=== PATIENT | male | born 1950 | race Caucasian/White ===

== ENCOUNTER 2024-12-28 13:22 | Inpatient (IN) | payer OTHER, MEDICARE ==
[~2024-12-28] VITALS: Ht 172.7 cm; Wt 67.0 kg
[~2024-12-28 13:22] MED LIST: ASPI81TA52 PO; ATOR-429 PO; CYCL-920 PO; FLUT16SP11 BOTHNARES; LOSA-416 PO; OMEP40CA21 PO; TAMS0.4C32 PO; TRAM50TA2 PO
[2024-12-28] MEDS: HEPARIN DRIP-CARDIAC**PHARMACIST-TO-DOSE IV ONE (13:30)
--- NOTE | 2024-12-28 13:32 | ELECTROCARDIOGRAPH REPORT ---
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
--- NOTE | 2024-12-28 13:33 | Physician Documentation ---
Addendum CHIEF COMPLAINT/HPI: The patient is a 74-year-old male with a history of dementia and previous CVA with chronic right-sided deficit who was reportedly brought in to [facility] for nausea and vomiting. Troponins were elevated and rising and the patient was transferred here for Cardiology care. REVIEW OF SYSTEMS: Unable to obtain due to dementia. PHYSICAL EXAMINATION: Vitals and nursing note reviewed. Constitutional: General: Patient is awake, alert, oriented x 4 in no acute distress and well appearing. Speech is clear and lucid. Appearance: Normal appearance. Patient is not ill-appearing, toxic-appearing or diaphoretic. HENT: Head: Normocephalic and atraumatic. Mouth: Mucous membranes are moist. Pharynx: Oropharynx is clear. Eyes: General: No scleral icterus. Extraocular Movements: Extraocular movements intact. Pupils: Pupils are equal, round, and reactive to light. Neck: Supple, no Kernig or Brudzinski sign. Cardiovascular: Rate and Rhythm: Normal rate and regular rhythm. Heart sounds: No murmur heard. Pulmonary: Effort: No respiratory distress. Breath sounds: No wheezing, rhonchi or rales. Abdominal: General: There is no distension. Palpations: There is no fluid wave, hepatomegaly or mass. Tenderness: There is no abdominal tenderness. There is no guarding. Musculoskeletal: General: No swelling or deformity. Skin: Coloration: Skin is not jaundiced. Findings: No erythema or rash. Neurological: Mental Status: Patient is alert. Chronic right-sided weakness. MEDICAL DECISION MAKING: This 74-year-old male was brought here with rising troponins consistent with an NSTEMI. He does have dementia and required some sedation in order to place leads on him for monitoring and drawing blood. He will require admission. Departure Disposition: ADMITTED INPATIENT Admitted to Inpatient Unit: to hospitalist Admission Level of Care: PCU with Tele Impression: Primary Impression: NSTEMI (non-ST elevated myocardial infarction) Condition: Stable DEVENDRA PACE MD Dec 28, 2024 13:33
--- NOTE | 2024-12-28 14:00 | RADIOLOGY REPORT ---
CHEST RADIOGRAPH Indication: CP Technique: Single frontal view of the chest was obtained Comparison: None FINDINGS: Lines and Tubes: None Lungs: No focal consolidation. Pleura: No effusion. No pneumothorax. Cardiomediastinal contours: Unremarkable Bones: No acute osseous abnormality. IMPRESSION: No acute cardiopulmonary disease.
[2024-12-28] MEDS: heparin 25,000 UNIT/250ml bag 250 ML IV PRN (14:29)
[2024-12-28] MEDS: haloperidol lactate 5mg/ml inj IVH STA (14:31)
[2024-12-28] MEDS: MESSAGE TO NURSING IV ONE (14:43)
[2024-12-28] MEDS: HEPARIN DRIP INITAL BOLUS --- DO NOT GIVE/ORDER MC ONE (14:43)
[2024-12-28 16:03] LABS: MEAN PLATELET VOLUME 8.9 FL (7.4-10.4); RED CELL DISTRIBUTION WIDTH 14.0 % (11.5-14.5)
[2024-12-28 16:26] LABS: CREATININE 1.02 MG/DL (0.60-1.10); PRO BRAIN NATRIURETIC PEPTIDE 2458 PG/ML (0-450); TOTAL CARBON DIOXIDE 22.0 MMOL/L (24-32); eCRCL 59 ML/MIN; eGFR 71 ML/MIN
[2024-12-28] MEDS ORDERED: potassium Cl 20 mEq SR tablet PO PRN (17:20)
[2024-12-28] MEDS ORDERED: magnesium sulf-water 2g/50mL 50 ML IV PRN (17:20)
[2024-12-28] MEDS ORDERED: magnesium sulf-water 4G/100mL 100 ML IV PRN (17:20)
[2024-12-28] MEDS ORDERED: magnesium Cl slow-release 64mg tablet PO PRN (17:20)
[2024-12-28] MEDS ORDERED: ondansetron/PF 4mg/2ml inj IV PRN (17:20)
[2024-12-28] MEDS ORDERED: heparin 10,000 units/1 ML INJ IV PRN (17:25)
[2024-12-28] MEDS ORDERED: heparin 25,000 UNIT/250ml bag 250 ML IV PRN (17:25)
[2024-12-28] MEDS: amiodarone 150mg/dext, iso-os 100 ML IV ONE (18:13)
[2024-12-28] MEDS: normal saline 1000ml 1,000 ML IV SCH (18:52)
--- NOTE | 2024-12-28 20:20 | HISTORY AND PHYSICAL ---
History & Physical Providers to CC ~ History of Present Illness Reason for Admit\Complaint: intense vomiting, hard time breathing History of Present Illness Patient is 74-year-old male with past medical history mentioned below. Patient has severe dementia unable to give any history to me. Patient's son Radames present at bedside who is the POA for the patient and provided most of the history. According to patient's son patient lives in dementia care facility in around 4:00 a.m. today they called him that patient is having intense vomiting and difficulty in breathing. Patient was brought in to [facility] for nausea and vomiting and from there they transferred the patient to [facility] due to elevated troponin and the patient was transferred here for Cardiology care. Patient was started in on heparin drip in ER. When I evaluated the patient patient was mildly hypotensive with elevated heart rate. Patient also got dose of Benadryl and Haldol in ER. Unable to get any further history due to severe dementia Allergies: Coded Allergies: No Known Allergies (Unverified , 12/29/17) Home Medications Home Medications Active Tamsulosin Hcl 0.4 Mg Cap.sr.24h 0.4 Mg PO DAILY Reported Tramadol HCl 50 Mg Tablet 1 Tablet PO DAILY PRN Prilosec (Omeprazole) 40 Mg Capsule 1 Cap PO DAILY 30 Days Cozaar* (Losartan Potassium) 50 Mg Tablet 1 Tab PO DAILY 30 Days Fluticasone Propionate 16 Gm [place].susp 2 Sprays BOTHNARES DAILY Cyclobenzaprine HCl 5 Mg Tablet 1 Tab PO HSPRN 30 Days Lipitor* (Atorvastatin Calcium) 80 Mg Tablet 1 Tablet PO HS Aspirin EC (Aspirin) 81 Mg Tablet.dr 1 Tab PO DAILY 30 Days Past Medical History Past Medical History Prostate cancer status post radiation therapy, PTSD, h/o alcohol abuse, and drug abuse. 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 ROS ROS Review of the system was limited because of the patient's level of confusion. Exam Vitals: Vital Signs Date Time Temp Pulse Resp B/P (MAP) Pulse Ox O2 Delivery O2 Flow Rate FiO2 12/28/24 18:56 98 16 112/79 (90) 96 0 12/28/24 18:01 98.0 General: General-patient not in any acute distress, awake chronically ill-appearing HEENT-atraumatic normocephalic, neck supple without elevated JVD, No lymphadenopathy bilaterally. Eyes-no icterus or pallor seen in eyes Chest-clear to auscultation bilaterally, breathing nonlabored no tachypnea, no wheezing, no crepitation, no crackles. Heart-S1-S2 normal, regular heart rate no murmur Abdomen bowel sounds positive on auscultation, soft nondistended nontender no guarding, no rigidity Skin no active skin rash Neurology-signs of right upper and lower extremity weakness present residue deficit due to old CVA Extremity- no pedal edema Psychiatry - patient is confused, not agitated , partially cooperated during physical examination Diagnostic Data Last Recorded Lab Results: 12/28/24 1545 12/28/24 1545 Diagnostic Data: Laboratory Tests Test 12/28/24 15:45 APTT (Heparin Protocol) 47 SECONDS (45-60) Coagulation Comments Additional Plan Patient is 74-year-old male with past medical history of Prostate cancer status post radiation therapy, PTSD, h/o alcohol abuse, and drug abuse. History of stroke in 2023 . # Patient is admitted for acute kidney injury due to nausea and vomiting, mildly hypotensive with elevated heart rate-patient is started on normal saline 70 mL/hour, we will continue to monitor patient's renal function # elevated troponin - Patient was started in on heparin drip , continue to monitor patient's cardiac markers and contact cardiology team in a.m. ordered echocardiogram. # History of stroke in 2023 - fall and aspiration precautions needed bedside swallowing studies ordered. We will continue to monitor patient's labs and vitals closely . Needs physical therapy evaluation before discharge . Code status discussed with the patients son , patient code status is DNR DNI. Time spent in discussing code status 16 minutes. We will do home medication reconciliation once updated in electronic by nursing staff or pharmacist. Further management depending on response to treatment and as per recommendation by operations systems specialist . I will continue to follow patient in a.m. Date of Service: Dec 28, 2024 Billing Provider: ALISON SIMMS MD Common Visit Codes: 12850-JEPTEYG INP/OBS CARE (HIGH) Secondary Visit Codes: 48907-RRPSIPTV CARE PLAN 30 MINUTES ALISON SIMMS MD Dec 28, 2024 20:20
[2024-12-28] MEDS: metoprolol succinate 25mg (24-HOUR) SR. Tablet PO ONE (23:29)
[2024-12-28] MEDS: metoprolol tartrate 1mg/ml inj IV ONE (23:40)
[2024-12-28] MEDS: haloperidol lactate 5mg/ml inj IM ONE (23:40)
[2024-12-29] VITALS (8 sets, daily range): BP systolic 112–170; BP diastolic 72–89; PULSE 47–94; RESP 12–20; TEMP 97.6–98.7; O2SAT 96–99
[2024-12-29 04:36] LABS: MEAN PLATELET VOLUME 8.4 FL (7.4-10.4); RED CELL DISTRIBUTION WIDTH 14.1 % (11.5-14.5)
[2024-12-29 04:42] LABS: CREATININE 1.17 MG/DL (0.60-1.10); TOTAL CARBON DIOXIDE 26.0 MMOL/L (24-32); eCRCL 52 ML/MIN; eGFR 61 ML/MIN
[2024-12-29] MEDS: MESSAGE TO NURSING IV ONE ×3 (05:15→21:45)
[2024-12-29] MEDS: potassium Cl 20 mEq SR tablet PO PRN (05:41)
--- NOTE | 2024-12-29 06:13 | ELECTROCARDIOGRAPH REPORT ---
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
[2024-12-29] MEDS: potassium Cl 40MEQ/1/2NS 520ml 520 ML IV PRN (09:04)
[2024-12-29] MEDS ORDERED: MELA3TAB70 PO (17:35)
[2024-12-29] MEDS ORDERED: LISI20TA28 PO (17:35)
[2024-12-29] MEDS ORDERED: POLY119P2 PO (17:35)
[2024-12-29] MEDS ORDERED: ONDA-243 PO (17:35)
[2024-12-29] MEDS ORDERED: DIVA-74 PO (17:35)
[2024-12-29] MEDS ORDERED: TRAZ-251 PO (17:35)
[2024-12-29] MEDS ORDERED: SENN-360 PO (17:35)
[2024-12-29] MEDS ORDERED: QUET25TA PO (17:35)
[2024-12-29] MEDS ORDERED: AMLO5TAB5 PO (17:35)
[2024-12-29] MEDS ORDERED: FOLI0.4T6 PO (17:35)
[2024-12-29] MEDS ORDERED: ACET-1008 PO (17:35)
[2024-12-29] MEDS ORDERED: MULT-1085 PO (17:35)
--- NOTE | 2024-12-29 18:17 | CONSULTATION REPORT ---
History of Present Illness Providers to CC CC: VELASQUEZ FALCON MD ~ Reason for Admit\Admit Dx: Cardiology consultation Refering MD: [facility] History of Present Illness Patient presented as a transfer secondary to NSTEMI. He has known history of severe dementia, prostate cancer, lung mass status post resection, history of drug abuse. History of stroke. He is unable to provide any history. Per patient's son who is at bedside he was brought to the hospital secondary to vomiting. He also had a complaint of chest pain. He has been vomiting for some time. In fact, this started on Wednesday where he was experiencing violent vomiting episodes. Then developed this chest pain. Went to [facility] and was found to have elevated troponins. He was therefore transferred for higher level of care. Currently, he is resting comfortably in bed. Since he has been at [facility] he has not experienced any vomiting episodes. He has not experienced any chest pain. Currently on a heparin drip. Initial EKG showed sinus rhythm with left anterior fascicular block. Subsequent EKG with atrial fibrillation with rapid ventricular response rate of 143 Allergies: Coded Allergies: No Known Allergies (Unverified , 12/29/17) Home Medications Home Medications Active Tamsulosin Hcl 0.4 Mg Cap.sr.24h 0.4 Mg PO DAILY Reported Multi Vitamin Daily (Multivitamin) 1 Each Tablet 1 Each PO Ondansetron Odt (Ondansetron HCl) 4 Mg Tab.rapdis 4 Mg PO Senna (Sennosides) 8.6 Mg Tablet 1 Tab PO Q12H 25 Days Miralax (Polyethylene Glycol 3350) 17 Gram/Dose Powder 17 Gm PO DAILY dissolve in water Tylenol (Acetaminophen) 325 Mg Tablet 650 Mg PO Q6H PRN PAIN Seroquel (Quetiapine Fumarate) 25 Mg Tablet 2 Tab PO DAILY Trazodone HCl 50 Mg Tablet 2 Tab PO HS 30 Days Norvasc (Amlodipine Besylate) 5 Mg Tablet 1 Tab PO DAILY 30 Days Melatonin 3 Mg Tab.rapdis 2 Tab PO HS 30 Days Lisinopril 20 Mg Tablet 1 Tab PO DAILY 30 Days Folic Acid* (Folic Acid) 0.4 Mg Tablet 1 Tab PO DAILY 30 Days Divalproex Sodium 250 Mg Tablet.dr 1 Tab PO DAILY 30 Days Cozaar* (Losartan Potassium) 50 Mg Tablet 1 Tab PO DAILY 30 Days Fluticasone Propionate 16 Gm [place].susp 2 Sprays BOTHNARES DAILY Cyclobenzaprine HCl 5 Mg Tablet 1 Tab PO HSPRN 30 Days Lipitor* (Atorvastatin Calcium) 80 Mg Tablet 1 Tablet PO HS Aspirin EC (Aspirin) 81 Mg Tablet. 1 Tab PO DAILY 30 Days Past Medical History Medical History Comment State cancer status post radiation PTSD Hyperlipidemia Hypertension GERD on omeprazole CVA Past Surgical History Surgical History Comment Large small cell cancer removed from the right lung in 2022 Past Social History Social History Comment History of smoking. He has quit. History of alcohol use. Currently lives in a dementia intermediate called the [facility] Physical Exam Last Vital Signs Recorded: RN Vital Signs have been reviewed: Yes, Temperature: 98.3, Source: Oral, Heart Rate: 67, Respiratory Rate: 12, BP: 153/78, Pulse Oximetry: 98, Weight: 67.000 Physical Exam General: Awake, alert, no apparent distress Respiratory: Lungs are clear to auscultation bilaterally. No respiratory distress. Chest: Normal shape and size. No accessory muscle use. Cardiovascular: Regular rate and rhythm. S1-S2. No murmur, gallop, rub. Extremities: No lower extremity edema, cyanosis or clubbing. Neurologic: Alert and oriented x4. Nonfocal Psychiatric: Normal mood and affect. Skin: Normal color. Warm and dry. Review of Systems Unable to obtain complete ROS: dementia Results EKG EKG Initial EKG interpretation independent as described in HPI. Echocardiogram Echocardiogram Echocardiogram demonstrates preserved LVEF at 70% with no wall motion abnormalities. Moderate AI. Trace TR, trace MR. Other Other High sensitivity troponins 305, 308, 293 Diagram Lab Result Diagram: 12/29/2441412/29/24414 Assessment/Plan Additional Plan Patient presented with nausea and vomiting. In the setting of severe dementia. The following is his problem list: NSTEMI Recommend medical management Heparin for 48 hours --no aspirin as he will be on oral anticoagulation --high-intensity statin. We will check lipids. --beta-frankie if able to tolerate Paroxysmal atrial fibrillation Chads Vasc four --recommend Eliquis 5 mg b.i.d. Hypertension --on losartan as an outpatient Hyperlipidemia --check lipids. On statin as an outpatient Hypokalemia --recommend replacement per protocol Nausea and vomiting --seems to have resolved. History of stroke Severe dementia Case discussed with Dr. Ewa Falcon who is in agreement with this plan. For any further cardiology needs please contact him directly. Supervising MD Supervising Physician: JOANNE Huertas NP Dec 29, 2024 18:17
--- NOTE | 2024-12-29 18:54 | PROGRESS NOTE ---
Daily Progress Note Providers to CC ~ Antibiotic Timeout Antibiotic Ordered?: No Subjective Was seen in presence of nursing staff but patient do not want me to examine him today and say " No "to most of the questions. Looks comfortable Objective Vital Signs Date Time Temp Pulse Resp B/P (MAP) Pulse Ox O2 Delivery O2 Flow Rate FiO2 12/29/24 15:00 98.3 67 12 153/78 (103) 98 Room Air 12/28/24 23:58 0 Result Diagram: 12/29/2441412/29/24414 General-patient not in any acute distress, awake chronically ill-appearing Eyes-no icterus or pallor seen in eyes Neurology-signs of right upper and lower extremity weakness present residue deficit due to old CVA Psychiatry - patient is confused, not agitated , not cooperated during physical examination Coagulation Studies Laboratory Tests Test 12/29/24 11:16 APTT (Heparin Protocol) 62 SECONDS (45-60) H Coagulation Comments Problem\\Assessment\\Plan Patient is 74-year-old male with past medical history of Prostate cancer status post radiation therapy, PTSD, h/o alcohol abuse, and drug abuse. History of stroke in 2023 . # Patient is admitted for acute kidney injury due to nausea and vomiting, mildly hypotensive with elevated heart rate-patient is started on normal saline 70 mL/hour, we will continue to monitor patient's renal function # elevated troponin - Patient was started in on heparin drip , continue to monitor patient's cardiac markers , echocardiogram done today . Cardiology team who evaluated the patient in recommended medical management and to continue heparin for 48 hours, high-intensity statin and beta frankie if able to tolerate. # paroxysmal atrial fibrillation recommended Eliquis 5 mg twice daily once heparin drip is stopped. # HTN- will plan to start low-dose of losartan in a.m. for hypertension. Blood pressure stable # Hypokalemia-replacement of potassium as per protocol # History of stroke in 2023 - fall and aspiration precautions needed bedside swallowing studies ordered. We will continue to monitor patient's labs and vitals closely . Needs physical therapy evaluation before discharge patient code status is DNR DNI. home medication reconciliation updated in electronic records. Further management depending on response to treatment and as per recommendation by customer engagement specialist . I will continue to follow patient in a.m. Date of Service: Dec 29, 2024 Billing Provider: ALISON SIMMS MD Common Visit Codes: [id number] INP/OBS CARE(HIGH) ALISON SIMMS MD Dec 29, 2024 18:54
[2024-12-29] MEDS: heparin 10,000 units/1 ML INJ IV PRN (22:20)
[2024-12-30 02:00] VITALS: BP 148/64; PULSE 53; RESP 20; TEMP 97.6; O2SAT 98
--- NOTE | 2024-12-30 05:37 | CARDIOLOGY REPORT ---
APPROVED REPORT EXAM: Comprehensive 2D, Doppler, and color-flow Echocardiogram. 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 3.76 cm IVC 17.62 mm FS (%) 39.7 % SV 50.8 ml CO 2.8 L/min M-Mode Dimensions Left Atrium(MM) 3.41 (2.5-4.0cm) Aortic Root 3.15 (2.2-3.7cm) Aortic Cusp Exc 1.94 (1.5-2.0cm) MV EPSS 1.0 (<0.5cm) Aortic Valve AoV Peak Harvinder. 179.4 cm/s AoV VTI 33.9 cm AO Peak GR. 12.9 mmHg AO Mean GR. 6 mmHg LVOT VTI 26.91 cm LVOT Peak Harvinder. 136.1 cm/s BEAR(VTI)/BSA 2.57 cm2/m2 BEAR (VTI) 2.57 cm2 AI P 1/2 Time 796 ms AV DI 0.79 % Mitral Valve MV E Velocity 67.7 cm/s MV Peak Gr. 4 mmHg MV DECEL TIME 228 ms MV A Velocity 55.4 cm/s MV PHT 80 ms E/A Ratio 1.2 MVA (PHT) 2.75 cm2 MV VMax 96.3 cm/s TDI Lateral E' P. V 11.92 cm/s E/Lateral E' 5.7 Tricuspid Valve TR P. Velocity 233 cm/s RAP ESTIMATE 10 mmHg TR Peak Gr. 22 mmHg RVSP 32 mmHg LEFT VENTRICLE Normal LV size and wall thickness. Overall systolic function is normal. LVEF is 65-70%. RIGHT VENTRICLE RV is normal size and function. ATRIA The left atrium size is normal. AORTIC VALVE Trileaflet AV appears mildly sclerotic without stenosis. Moderate insufficiency. MITRAL VALVE Mild mitral annular calcification without stenosis. Trace regurgitation. TRICUSPID VALVE The tricuspid valve is normal in structure with trace regurgitation. PULMONIC VALVE Pulmonic valve is grossly normal in structure. GREAT VESSELS The aortic root is normal in size. The ascending aorta is normal in size. The IVC is normal in size and collapses >50% with inspiration. PERICARDIUM Normal pericardium. No effusion. Other Information Study Quality: Adequate Conclusion Normal LV size and wall thickness. Overall systolic function is normal. LVEF is 65-70%. RV is normal size and function. The left atrium size is normal. Trileaflet AV appears mildly sclerotic without stenosis. Moderate insufficiency. Mild mitral annular calcification without stenosis. Trace regurgitation. The tricuspid valve is normal in structure with trace regurgitation. Normal pericardium. No effusion.
[2024-12-30 06:00] VITALS: BP_SYST 111; BP_SYST 170; BP_DIAS 69; BP_DIAS 78; PULSE 67; PULSE 79; RESP 18; TEMP 97.7; O2SAT 93; O2SAT 97
[2024-12-30] MEDS: MESSAGE TO NURSING IV ONE (06:34)
[2024-12-30 06:43] LABS: MEAN PLATELET VOLUME 9.1 FL (7.4-10.4); RED CELL DISTRIBUTION WIDTH 13.9 % (11.5-14.5)
[2024-12-30 07:10] LABS: CHOL/HDL RATIO 1.9 (0.00-4.99); CREATININE 1.00 MG/DL (0.60-1.10); LDL CHOLESTEROL 40 MG/DL (50-100); TOTAL CARBON DIOXIDE 20.0 MMOL/L (24-32); eCRCL 60 ML/MIN; eGFR 73 ML/MIN
[2024-12-30] MEDS: polyethylene glycol 3350 17gm powd pack PO SCH (08:00)
[2024-12-30] MEDS: divalproex 250mg tablet, delayed-release PO SCH (08:59)
[2024-12-30] MEDS: fluticasone nasal spray 16GM bottle NS SCH (08:59)
[2024-12-30 11:00] VITALS: BP 137/77; PULSE 56; RESP 16; TEMP 97.3; O2SAT 100
[2024-12-30] MEDS ORDERED: APIX5TAB3 PO (14:46)
[2024-12-30 15:00] VITALS: BP 142/86; PULSE 106; RESP 19; TEMP 97.8; O2SAT 97
--- NOTE | 2024-12-30 19:45 | DISCHARGE SUMMARY ---
Discharge Summary Providers to CC ~ Discharge Summary Admission Diagnosis: NSTEMI, DEMENTIA Hospital Course DATE OF ADMISSION: December 28, 2024 DATE OF DISCHARGE:December 30, 2024 CBC testing done on December 30, 2024 WBC 7.2 hemoglobin 12.5 hematocrit 35.5 sed rate five platelet count 210. Serum chemistry done on December 30, 2024 sodium 135 potassium 3.6 creatinine 1.00, GFR 73 procalcitonin 0.05 normal lipid levels. Troponin 305, 308, 293. ECHOCARDIOGRAMConclusion Normal LV size and wall thickness. Overall systolic function is normal. LVEF is 65-70%. RV is normal size and function. The left atrium size is normal. Trileaflet AV appears mildly sclerotic without stenosis. Moderate insufficiency. Mild mitral annular calcification without stenosis. Trace regurgitation. The tricuspid valve is normal in structure with trace regurgitation. Normal pericardium. No effusion. CHEST,SINGLE VIEWIMPRESSION: No acute cardiopulmonary disease. Discharge Diagnosis\Comment: severe dementia, NSTEMI Paroxysmal atrial fibrillation, Hypertension, Hyperlipidemia, Hypokalemia, Nausea and vomiting History of stroke Operations\Procedures: None Consultants: Dr Dana Falcon Complications: None Condition on DC: Stable New Medications: Apixaban (Eliquis) 5 Mg Tablet 5 MG PO BID for 30 Days, #60 TAB Continued Medications: Acetaminophen (Tylenol) 325 Mg Tablet 650 MG PO Q6H PRN PAIN, TAB Amlodipine Besylate (Norvasc) 5 Mg Tablet 1 TAB PO DAILY for 30 Days, #30 TAB 0 Refills Atorvastatin Calcium* (Lipitor*) 80 Mg Tablet 1 TABLET PO HS, TABLET Divalproex Sodium (Divalproex Sodium) 250 Mg Tablet.dr 1 TAB PO DAILY for 30 Days, #60 TAB Fluticasone Propionate (Fluticasone Propionate) 16 Gm [place].susp 2 SPRAYS BOTHNARES DAILY, #1 INHALER 0 Refills Folic Acid* (Folic Acid*) 0.4 Mg Tablet 1 TAB PO DAILY for 30 Days, #30 TAB Losartan* (Cozaar*) 50 Mg Tablet 1 TAB PO DAILY for 30 Days, #30 TAB Melatonin (Melatonin) 3 Mg Tab.rapdis 2 TAB PO HS for sleep for 30 Days, #30 TAB 0 Refills Multivitamin (Multi Vitamin Daily) 1 Each Tablet 1 EACH PO, TAB ONDANSETRON ODT 4mg tablet (Ondansetron Odt) 4 Mg Tab.rapdis 4 MG PO, TAB Polyethylene Glycol 3350 (Miralax) 17 Gram/Dose Powder 17 GM PO DAILY for constipation, #255 GM 0 Refills dissolve in water Quetiapine Fumarate (Seroquel) 25 Mg Tablet 2 TAB PO DAILY, TAB Tamsulosin Hcl (Tamsulosin Hcl) 0.4 Mg Cap.sr.24h 0.4 MG PO DAILY, #30 CAP.SR Trazodone HCl (Trazodone HCl) 50 Mg Tablet 2 TAB PO HS for 30 Days, #30 TAB 0 Refills Discontinued Medications: Aspirin (Aspirin EC) 81 Mg Tablet.dr 1 TAB PO DAILY for 30 Days, #30 TAB Cyclobenzaprine HCl (Cyclobenzaprine HCl) 5 Mg Tablet 1 TAB PO HSPRN for 30 Days, #30 TAB Lisinopril (Lisinopril) 20 Mg Tablet 1 TAB PO DAILY for 30 Days, #30 TAB Sennosides (Senna) 8.6 Mg Tablet 1 TAB PO Q12H for constipation for 25 Days, #100 TAB 0 Refills Discharge Summary: Patient is 74-year-old male with past medical history of Prostate cancer status post radiation therapy, PTSD, h/o alcohol abuse, and drug abuse. History of stroke in 2023 . # Patient is admitted for acute kidney injury due to nausea and vomiting, mildly hypotensive with elevated heart rate-patient is started on normal saline 70 mL/hour, we will continue to monitor patient's renal function # elevated troponin - Patient was started in on heparin drip , continue to monitor patient's cardiac markers , echocardiogram done today . Cardiology team who evaluated the patient in recommended medical management and to continue heparin for 48 hours, high-intensity statin and beta frankie if able to tolerate. # paroxysmal atrial fibrillation recommended Eliquis 5 mg twice daily once heparin drip is stopped. # HTN- will plan to start low-dose of losartan in a.m. for hypertension. Blood pressure stable # Hypokalemia-replacement of potassium as per protocol # History of stroke in 2023 - fall and aspiration precautions needed bedside swallowing studies ordered. Patient is feeling better he has been afebrile and getting discharged home in stable condition. Patient is seen and examined on the day of discharge. assistant casino shift manager involved in patient's discharge plan. Discharge instructions provided to the patientFollow-up with primary care physician in outpatient setting in 1-2 weeks, continue to monitor CBC, BMP 2-4 weeks for 1st month and then as recommended by PCP. General-patient not in any acute distress, awake chronically ill-appearing HEENT-atraumatic normocephalic, neck supple without elevated JVD, No lymphadenopathy bilaterally. Eyes-no icterus or pallor seen in eyes Chest-clear to auscultation bilaterally, breathing nonlabored no tachypnea, no wheezing, no crepitation, no crackles. Heart-S1-S2 normal, regular heart rate no murmur Abdomen bowel sounds positive on auscultation, soft nondistended nontender no guarding, no rigidity Skin no active skin rash Neurology-signs of right upper and lower extremity weakness present residue deficit due to old CVA Extremity- no pedal edema Psychiatry - patient is confused, not agitated , partially cooperated during physical examination *Problems/Diagnosis: (1) NSTEMI (non-ST elevated myocardial infarction) Status: Acute Total Time Spent on D/C: > 30 Minutes Date of Service: Dec 30, 2024 Billing Provider: ALISON SIMMS MD Common Visit Codes: 48194-GVK/OBS DISCH DAY >30min ALISON SIMMS MD Dec 30, 2024 19:43
== END 2024-12-30 19:20 | disposition home or self-care (01) | DRG 682 ==
LOC: ER 13:22 → ED HOLD 17:23 → PCU 3S 12-29 00:30
PROVIDERS: ADMIT Internal Medicine; ATTEND Internal Medicine
DX: N17.9 Acute kidney failure, unspecified (principal); I21.4 Non-ST elevation (NSTEMI) myocardial infarction; I48.0 Paroxysmal atrial fibrillation; F03.C0 Unspecified dementia, severe, without behavioral disturbance, psychotic disturbance, mood disturbance, and anxiety; I10 Essential (primary) hypertension; E78.5 Hyperlipidemia, unspecified; E87.6 Hypokalemia; Z86.73 Personal history of transient ischemic attack (TIA), and cerebral infarction without residual deficits; Z79.01 Long term (current) use of anticoagulants; Z79.899 Other long term (current) drug therapy; I95.9 Hypotension, unspecified; Z85.46 Personal history of malignant neoplasm of prostate; Z92.3 Personal history of irradiation; F43.10 Post-traumatic stress disorder, unspecified; Z85.118 Personal history of other malignant neoplasm of bronchus and lung; I44.4 Left anterior fascicular block; K21.9 Gastro-esophageal reflux disease without esophagitis; Z87.891 Personal history of nicotine dependence
CPT/HCPCS: 36415; 71045; 80048; 80061; 83880; 84132; 84145; 84484; 85025; 85651; 85730; 87081; 93005; 93306; 96365; 96367; 96372; 97110; 97116; 97162; 97530; 99285; A4615; A6250; A6590; G0378; J0282; J1200; J1630; J1644; J3480; J3490; J7030